=== PATIENT | male | born 1995 | race American Indian/Alaskan Native ===

== ENCOUNTER 2017-01-17 08:47 | Emergency (ER) | payer SELFPAY ==
[2017-01-17 09:02] VITALS: BP 115/75
[2017-01-17] MEDS ORDERED: TETRACAINE 0.5% OU ONE (12:40)
[2017-01-17] MEDS ORDERED: FUL-GLO OP ONE (12:40)
--- NOTE | 2017-01-17 12:41 | Emergency Department Report ---
Eye Injury/Foreign Body - HPI Duration: Today Eye Location: Left Severity: Mild Tetanus Status: Up to Date (last tetanus was 2 years ago as per patient) Eye Symptoms: Eye Pain: Yes, Blurred Vision: No, Eye Redness: Yes, Grinding/ Hammering Metal: No, Used Eye Protection: No, Contact Lens Use: No, Recalls Injury: No, Photophobia: No Other History: 21-year-old malesignificant past medical history presents with complaint of waking up this morning with left eye irritation, watery tearing and slight yellow crusting and some discomfort/foreign body sensation left eye. Patient denies any direct trauma denies any URI symptoms, denies any significantly blurry vision. Patient states that earlier today his eye was slightly more red than it is right now. No visible orbital or facial swelling, patient states he is in usual state of behavior otherwise denies any fever or chills denies any nasal congestion denies any earache. Patient does not use glasses or contacts. ED Review of Systems ROS: Stated complaint: LEFT EYE PAIN Other details as noted in HPI Constitutional: denies: chills, fever Eyes: denies: eye pain, eye discharge, vision change ENT: denies: ear pain, throat pain Respiratory: denies: cough, shortness of breath, wheezing Cardiovascular: denies: chest pain, palpitations Endocrine: no symptoms reported Gastrointestinal: denies: abdominal pain, nausea, diarrhea Genitourinary: denies: urgency, dysuria Musculoskeletal: denies: back pain, joint swelling, arthralgia Skin: denies: rash, lesions Neurological: denies: headache, weakness, paresthesias Psychiatric: denies: anxiety, depression Hematological/Lymphatic: denies: easy bleeding, easy bruising ED Past Medical Hx - Past Medical History Previous Medical History?: No - Social History Smoking Status: Never Smoker Substance Use Type: Alcohol - Medications Home Medications: Home Medications Medication Instructions Recorded Confirmed Last Taken Type Acetaminophen [Acetaminophen TAB] 325 mg PO Q8H PRN #1 bottle 01/17/17 Unknown Rx Erythromycin [Erythromycin Ophth 10 applic OP BID #1 tube 01/17/17 Unknown Rx Oint] Naphazoline HCl/Pheniramine 1 drop OS QID PRN #1 bottle 01/17/17 Unknown Rx [Naphcon-A Eye Drops] Eye Injury Exam - Exam General: Vital signs noted. No distress. Alert and acting appropriately. - Visual Acuity Left Vision Acuity Degree: 20/25 Eye Exam: Left Injection (slight injection of the conjunctiva), Left Chemosis ( on floor seen there is some ecchymosis visible and lower lid possible small abrasion), Left Fluorescein Uptake (tiny amount of fluorescein uptake below left conjunctiva on inner lower lid ), Both EOMI, Neither Abnormal Pupil, Neither Eye Foreign Body ED Course Vital Signs 01/17/17 08:54 Temperature 98.3 F Pulse Rate 63 Respiratory 17 Rate Blood Pressure 115/75 O2 Sat by Pulse 100 Oximetry ED Medical Decision Making - Medical Decision Making A/P: Possible small corneal abrasion, conjunctivitis 1-patient's vision is 20/25 overall, 20/25 left eye, 20/20 right eye. Unforeseen exam there is no large abrasion or foreign body visualized. Pupils intact extraocular movements are intact. There is some mild conjunctival injection and lower aspect of eye. No hyphema. 2-erythromycin ointment, Tylenol when necessary 3-will provide patient with information for ophthalmology follow-up Critical care attestation.: If time is entered above; I have spent that time in minutes in the direct care of this critically ill patient, excluding procedure time. ED Disposition Clinical Impression: Corneal abrasion, left Qualifiers: Encounter type: initial encounter Qualified Code(s): S05.02XA - Injury of conjunctiva and corneal abrasion without foreign body, left eye, initial encounter Disposition: - TO HOME OR SELFCARE Is pt being admited?: No Does the pt Need Aspirin: No Condition: Stable Instructions: Corneal Abrasion (ED), Conjunctivitis (ED) Prescriptions: Acetaminophen [Acetaminophen TAB] 325 mg PO Q8H PRN #1 bottle PRN Reason: Pain Erythromycin [Erythromycin Ophth Oint] 10 applic OP BID #1 tube Naphazoline HCl/Pheniramine [Naphcon-A Eye Drops] 1 drop OS QID PRN #1 bottle PRN Reason: Itching Referrals: SAM VILLEGAS MD [Staff Physician] - 3-5 Days Forms: Accompanied Note Time of Disposition: 13:29
== END 2017-01-17 13:35 | disposition home or self-care (01) ==
LOC: ED 08:47 → MERGE 08:47 → ED 13:35
DX: S05.02XA Injury of conjunctiva and corneal abrasion without foreign body, left eye, initial encounter (principal); X58.XXXA Exposure to other specified factors, initial encounter; Y93.89 Activity, other specified; Y92.89 Other specified places as the place of occurrence of the external cause; Y99.8 Other external cause status
CPT/HCPCS: 99283

== ENCOUNTER 2017-11-03 10:46 | Emergency (ER) | payer BC ==
--- NOTE | 2017-11-03 12:17 | Emergency Department Report ---
ED Lower Extremity HPI - General Chief Complaint: Extremity Injury, Lower Stated Complaint: TOE NAIL Time Seen by Provider: 11/03/17 12:14 Source: patient Mode of arrival: Ambulatory Limitations: No Limitations - History of Present Illness Initial Comments: Pt reports injuring his R great toe a couple weeks ago and now the toenail is discolored. Denies pain. MD Complaint: foot injury -: week(s) (2) Injury: Toes: Right Type of Injury: blunt Place: work Severity: mild Improves With: nothing Worsens With: nothing Context: direct blow Associated Symptoms: ambulatory. denies: snap/pop sensation, swelling, numbness , tingling - Related Data Previous Rx's Medication Instructions Recorded Last Taken Type Cephalexin 500 mg PO Q8HR #30 capsule 11/03/17 Unknown Rx Allergies Allergy/AdvReac Type Severity Reaction Status Date / Time aspirin Allergy Unknown Verified 11/03/17 10:49 Penicillins Allergy Unknown Verified 11/03/17 10:49 Sulfa (Sulfonamide Allergy Hives Verified 11/03/17 10:49 Antibiotics) nuts Allergy Unknown Uncoded 03/26/16 14:50 ED Review of Systems ROS: Stated complaint: TOE NAIL Other details as noted in HPI Comment: All other systems reviewed and negative Constitutional: denies: chills, fever Eyes: denies: eye pain, eye discharge, vision change ENT: denies: ear pain, throat pain Respiratory: denies: cough, shortness of breath, wheezing Cardiovascular: denies: chest pain, palpitations Endocrine: no symptoms reported Gastrointestinal: denies: abdominal pain, nausea, diarrhea Genitourinary: denies: urgency, dysuria Musculoskeletal: denies: back pain, joint swelling, arthralgia Skin: denies: rash, lesions Neurological: denies: headache, weakness, paresthesias Psychiatric: denies: anxiety, depression Hematological/Lymphatic: denies: easy bleeding, easy bruising ED Past Medical Hx - Past Medical History Hx Diabetes: No Additional medical history: Hidradenitis - Surgical History Additional Surgical History: Radical excision of the left axilla (01-13-2014) excision of bilat groin 06/18/14 - Social History Smoking Status: Never Smoker Substance Use Type: None - Medications Home Medications: Home Medications Medication Instructions Recorded Confirmed Last Taken Type Cephalexin 500 mg PO Q8HR #30 capsule 11/03/17 Unknown Rx ED Physical Exam - General Limitations: No Limitations General appearance: alert, in no apparent distress - Head Head exam: Present: atraumatic, normocephalic - Eye Eye exam: Present: normal appearance - ENT ENT exam: Present: mucous membranes moist - Neck Neck exam: Present: normal inspection - Respiratory Respiratory exam: Present: normal lung sounds bilaterally. Absent: respiratory distress - Cardiovascular Cardiovascular Exam: Present: regular rate, normal rhythm. Absent: systolic murmur, diastolic murmur, rubs, gallop - GI/Abdominal GI/Abdominal exam: Present: soft, normal bowel sounds - Rectal Rectal exam: Present: deferred - Extremities Exam Extremities exam: Present: full ROM, normal capillary refill, other (There is discoloration to the R great toenail. There is a tiny subungual hematoma. There is no evidence of infection though the toenail is loose. Remainder of exam normal. CMS intact.). Absent: tenderness - Back Exam Back exam: Present: normal inspection - Neurological Exam Neurological exam: Present: alert, oriented X3 - Psychiatric Psychiatric exam: Present: normal affect, normal mood - Skin Skin exam: Present: warm, dry, intact, normal color. Absent: rash ED Course Vital Signs 11/03/17 10:49 Temperature 98.6 F Pulse Rate 72 Respiratory 20 Rate Blood Pressure 135/70 O2 Sat by Pulse 99 Oximetry - Reevaluation(s) Reevaluation #1: 11/03/17 12:53 Stable for d/c. ED Lower Extremity MDM - Radiology Data Radiology results: report reviewed, image reviewed negative - Medical Decision Making Pt presents with toe injury, loose nail without infection on exam. Supportive care discussed. - Differential Diagnosis subungual hematoma, nail avulsion, fracture Critical care attestation.: If time is entered above; I have spent that time in minutes in the direct care of this critically ill patient, excluding procedure time. ED Disposition Clinical Impression: Injury of toenail of right foot Qualifiers: Encounter type: initial encounter Qualified Code(s): S99.921A - Unspecified injury of right foot, initial encounter Disposition: TO HOME OR SELFCARE Is pt being admited?: No Condition: Good Instructions: Subungual Hematoma (ED), Toenail/Fingernail Removal (ED) Prescriptions: Cephalexin 500 mg PO Q8HR #30 capsule Referrals: PRIMARY CARE, [Primary Care Provider] - 3-5 Days NISHA BUSTOS DPM [Staff Physician] - 3-5 Days Time of Disposition: 12:55
--- NOTE | 2017-11-03 12:49 | XRay Report ---
Right great toe 3 views: History: Grade 2 injury. Findings: No fracture periosteal reaction or lytic lesion. Impression: Essentially negative right great toe.
[2017-11-03 13:03] VITALS: BP 114/66
== END 2017-11-03 13:03 | disposition home or self-care (01) ==
LOC: ED 10:46
DX: S99.921A Unspecified injury of right foot, initial encounter (principal); Z88.6 Allergy status to analgesic agent; Z88.0 Allergy status to penicillin; Z88.2 Allergy status to sulfonamides; Z91.010 Allergy to peanuts; X58.XXXA Exposure to other specified factors, initial encounter; Y93.89 Activity, other specified; Y92.89 Other specified places as the place of occurrence of the external cause; Y99.8 Other external cause status
CPT/HCPCS: 99283